=== PATIENT | male | born 1940 | race Caucasian/White ===

== ENCOUNTER → 2018-12-12 | Outpatient (CLI) | payer BC ==
[~2018-12-12] MED LIST: ADULT ASPIRIN R81 MG PO; ATORVASTATIN CA80 MG PO; ATROVENT NASAL SPRAY NARES; CLARITIN10 MG PO; DESONIDE 0.05%60 M1 TOP; EZETIMIBE PO; HYDROCODON-ACE1 EAC7 PO; JANUVIA100 MG PO; LISINOPRIL-HCT1 EACH PO; MEDROLDOSEPACK PO; METFORMIN PO; PLAVIX 75 MG TA75 MG PO; POTASSIUM20 PO; TOPROL XL25 MG PO; VITAMIN B 12 PO; VITAMIN D PO; XANAX 0.5 MG0.5 M1 PO
--- NOTE | 2018-12-25 13:25 | PAINCON ---
[address] [address] PAIN MANAGEMENT CONSULTATION Name: CECY VALADEZ Room: [facility]#: [id number] Admission: 12/12/18 Attend Phys: Danielle Mohr MD Discharge: Date of : 40 Report #: [id number] THIS REPORT FOR: //name// CC: MD Danielle Gonzalez DATE OF SERVICE: 12/12/2018 PRIMARY PHYSICIAN: Girma Mendez MD CHIEF COMPLAINT: Back pain. HISTORY: The patient is a 78-year-old gentleman who has been referred to the Pain Clinic for evaluation of back pain. He states that he is having pain in the low back area. It has been ongoing for a number of years. He describes it as an aching, steady, tender pain which as a component of it stiffness. In the past, he had cervical radicular pain. He underwent an epidural injection a number of many years ago for this. He notes that the pain improved after that. He has undergone chiropractic treatment. He has undergone physical therapy. He is quite active. 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 He has not had back surgery. He denies any significant change in his bowel or bladder function. ALLERGIES: No known drug allergies. CURRENT MEDICATIONS: Xanax 0.5 mg one-half pill a.m., one pill at bedtime, aspirin 81 mg, Lipitor 80 mg, Plavix 75 mg, desonide 0.05% lotion apply to face as needed, hydrocodone 5/325 b.i.d., lisinopril/hydrochlorothiazide 10/12.5, Claritin 10 mg, metoprolol 25 mg at bedtime, potassium 20 mEq, Januvia 100 mg, Atrovent spray b.i.d., ezetimibe cholesterol 10 mg, metformin 850 mg b.i.d., vitamin B12 1000 mg daily and vitamin D 2000 mg. PAST MEDICAL HISTORY: Diabetes, hypertension, joint disease and peripheral vascular disease. PAST SURGICAL HISTORY: Left rotator cuff in 2011, right coronary artery stents in 2012 and 2013. REVIEW OF SYSTEMS: Generally good health, wears glasses, cataracts, hearing loss, chronic sinus problems, heart trouble, frequent urination, diabetes, excessive thirst, joint pain, joint stiffness, muscle cramps, back pain, nervousness, [place] [address] PAIN MANAGEMENT CONSULTATION Name: CECY VALADEZ Room: [facility]#: [id number] Admission: 12/12/18 Attend Phys: Danielle Mohr MD Discharge: Date of : 40 Report #: [id number] LABORATORY DATA: MRI of the lumbar spine dated 10/12/2018; 1. L3-L4; there is no evidence of disk herniation, central canal stenosis or neural foraminal stenosis. Ventral endplate osteophyte formation is noted. Thecal sac 1.5 cm AP. 2. L4-L5, there is minimal/mild annular disk bulging without focal disk herniation or central canal stenosis. Right foraminal/extraforaminal disk bulging and endplate osteophyte formation results in moderate narrowing of the anterior-inferior right neural foramen. Left foraminal/extraforaminal disk bulging and endplate osteophyte formation results in minimal narrowing of the anterior-inferior left neural foramen. The thecal sac is 1.3 cm AP. 3. L5-S1, there is mild facet degenerative changes. There is no evidence of disk herniation or central canal stenosis. The right foramen/external foramen, endplate osteophyte formation results in moderate narrowing of the inferior portion of the right neural foramen. Approaching the inferior surface of the right foramen at L5 nerve root was noted. Left foraminal extra/foraminal disk osteophyte formation results in mild narrowing of the anterior-inferior left neural foramen. The thecal sac is 1.5 cm AP. MRI of the cervical spine dated 08/14/2018 reveals impression, multilevel degenerative disk and cervical spondylitic changes. At C6-C7, there is moderate space narrowing with ventral endplate osteophyte formation. Diffuse annular disk bulging and broad-based posterior disk osteophyte formation flattens the ventral thecal sac and abuts the ventral surface of the cervical spinal cord. Bilateral uncovertebral osteophyte formation results in moderate to marked right and moderate left foraminal narrowing. There is moderate central canal stenosis. The thecal sac is 0.8 cm AP. C5/C6, there is moderate disk space narrowing and ventral endplate osteophyte formation. Broad-based posterior disk osteophyte formation resulting in flattening of the ventral thecal sac and abuts the ventral surface of the cervical spinal cord. There is a mild bilateral facet degenerative change. Bilateral uncovertebral osteophyte formation results in moderate bilateral foraminal stenosis. There is moderate central canal stenosis. The thecal sac is 0.7 cm AP. PAIN CLINIC ASSESSMENT/PQRS: 1. History of osteoarthritis. The patient has some osteoarthritic changes in the upper portion of his neck with narrowing in the C5-C6 and C6-C7 area. 2. Height 5 feet 7 inches, weight 173 pounds, BMI is 27.0. 3. Blood pressure 146/63, heart rate 60, respiratory rate 16, room air saturation is 96%, temperature 98.0. 4. Pain intensity 04/23. 5. Fall history. The patient has not fallen in the last 3 months. 6. Blood thinner. The patient is on a blood thinning medication, Plavix. 7. Hypertension. The patient is being treated for hypertension. 8. Opioids greater than 6 weeks. The patient [place] [address] PAIN MANAGEMENT CONSULTATION Name: CECY VALADEZ Room: [facility]#: [id number] Admission: 12/12/18 Attend Phys: Danielle Mohr MD Discharge: Date of : 40 Report #: [id number] control the pain, gets it from one source his primary. 9. Functional assessment tool, is low for opioid use. 10. Recreational drug use: The patient denies. 11. Alcohol: The patient rarely drinks alcoholic beverages. The patient denies use of tobacco. PHYSICAL EXAMINATION: GENERAL: The patient is a well-developed, well-nourished white male. He appears his stated age. He is alert and oriented x 3. Affect is appropriate. Speech is fluent. HEENT: Normocephalic, atraumatic. Extraocular eye muscles intact. The patient has bilateral hearing aids. NECK: Without adenopathy or JVD. HEART: Regular rate. ABDOMEN: Nontender. Bowel sounds present. LUNGS: Clear to auscultation. EXTREMITIES: The patient is not complaining of significant upper extremity pain today. The patient without significant scoliosis, kyphosis or lordosis. The patient has some pain and discomfort in the lower portion of his back. Palpation in the mid portion of his lower portion of his back reproduces a component of his pain. Also, has some pain in the midline area of his back. Forward bending to about 85 degrees caused some increased back discomfort. Pain is noted with left and right lateral bending, complains of some pain and discomfort in the left and right low back area. Left and right lateral rotations were not very problematic, lumbar extension caused some increased back discomfort. Deep tendon reflexes are trace at the biceps bilaterally. Muscle strength is judged to be 5/5 for the major muscle groups in the upper extremity and 5/5 for the major muscle groups in the lower extremity. IMPRESSION: 1. Myofascial pain, low back area. 2. History of cervical radiculopathy. 3. Diabetes. 4. Hypertension. 5. Joint disease. 6. Peripheral vascular disease. RECOMMENDATIONS: We discussed treatment options with the patient. At this juncture, he is having pain and discomfort in the low back area. He is not having as much problem in the upper extremity as he did in the past. Pain is worse with certain activities. 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 The patient does have pain and discomfort with palpation in the area of the left and right posterior-superior iliac spine. Palpation in this area does reproduce a component of the patient's pain. The patient has some pain as well up in the mid spine area at approximately L2-L3. At this juncture, [place] [address] PAIN MANAGEMENT CONSULTATION Name: CECY VALADEZ Room: [facility]#: [id number] Admission: 12/12/18 Attend Phys: Danielle Mohr MD Discharge: Date of : 40 Report #: [id number] conservative approach. He will take a Medrol Dosepak. He is on Plavix. We were unable to inject him today. He will try the Medrol Dosepak. If his pain continues to be problematic, he will return to the Pain Clinic at which time he will consider a trigger point injection to the affected area and his low back area on the left as well as the low back area on the right. We would like to thank you for letting us participate in his care. We hope he continues to improve. We did review the patient's MRI with him in great detail. All questions were sought and answered. <ELECTRONICALLY SIGNED> By: Danielle Mohr MD 12/25/18 1325 [id number]. Nakul Mohr MD /nt
== END ==
LOC: M.PC 11-14 10:10
DX: M47.812 Spondylosis without myelopathy or radiculopathy, cervical region (principal); M48.02 Spinal stenosis, cervical region; I10 Essential (primary) hypertension; E11.51 Type 2 diabetes mellitus with diabetic peripheral angiopathy without gangrene; Z79.899 Other long term (current) drug therapy; Z79.891 Long term (current) use of opiate analgesic